=== PATIENT | female | born 1975 | race American Indian/Alaskan Native ===

== ENCOUNTER 2019-06-05 08:28 | Emergency (ER) | payer OTHER ==
[2019-06-05 08:43] VITALS: BP 145/70
--- NOTE | 2019-06-05 10:04 | XRay Report ---
CHEST 2 VIEWS INDICATION: cough. Left lower rib pain. COMPARISON: None FINDINGS: Support devices: None. Heart: Within normal limits. Lungs/pleura: There is mild bronchial wall thickening in the perihilar regions extending to the lower lobes suggesting reactive airway disease, bronchiolitis or bronchitis. No infiltrate, pleural fluid or pneumothorax is identified. Additional findings: No osseous abnormality or rib abnormality is detected. IMPRESSION: Mild bronchial wall thickening is identified suggesting viral infection, bronchitis or reactive airwa y disease. Signer Name: Alin Mcginnis Jr, MD Signed: 06/05/2019 10:00 AM Workstation Name: [id number]
[2019-06-05] MEDS ORDERED: predniSONE 20 MG TAB PO ONE (10:52)
[2019-06-05] MEDS ORDERED: ALBUTEROL 2.5 MG/3 ML NEBU IH ONE (10:52)
--- NOTE | 2019-06-05 10:52 | Emergency Department Report ---
Minor Respiratory - HPI Chief Complaint: Weakness Stated Complaint: CHEST PAIN/COUGH/FEVER/PAIN Time Seen by Provider: 06/05/19 10:51 Pain Location: Chest Severity: mild Minor Respiratory: Yes Able to Tolerate Fluids, Yes Cough, No Rhinorrhea, No Sore Throat, No Ear Pain, No Sick Contacts, No Hemoptysis, No Chest Pain, No Shortness of Breath, No Fever Other History: 44 YO AA FEMALE COMES TO ER WITH 2 M HX OF COUGH. ENDORSES CHILLS BUT NO FEVER. HR IN TRIAGE ELEVATED BUT ON MY EXAM 85 BPM. SAT 100 ON ROOM AIR. YELLOW SPUTUM. PT DOES SMOKE. NO KNOWN MED HX. PCP NONE. NO DRUGS OR ETOH ED Review of Systems ROS: Stated complaint: CHEST PAIN/COUGH/FEVER/PAIN Other details as noted in HPI Comment: All other systems reviewed and negative ED Past Medical Hx - Past Medical History Previous Medical History?: No - Surgical History Past Surgical History?: Yes Additional Surgical History: hysterectomy - Family History Family history: no significant - Social History Smoking Status: Current Every Day Smoker Substance Use Type: None - Medications Home Medications: Home Medications Medication Instructions Recorded Confirmed Last Taken Type Azithromycin [Zithromax Z-TAWANDA] 250 mg PO DAILY #6 tablet 06/05/19 Unknown Rx Cetirizine HCl [ZyrTEC] 10 mg PO DAILY #30 capsule 06/05/19 Unknown Rx Fluticasone [Flonase] 1 spray NS QDAY #1 bottle 06/05/19 Unknown Rx predniSONE [Deltasone] 20 mg PO DAILY #5 tablet 06/05/19 Unknown Rx Minor Respiratory Exam - Exam General: Vital signs noted. No distress. Alert and acting appropriately. HEENT: Yes Moist Mucous Membranes, No Pharyngeal Erythema, No Pharyngeal Exudates, No Rhinorrhea, No Conjuctival Injection, No Frontal Tenderness, No Maxillary Tenderness Ear: Neither TM Bulge, Neither TM Erythema, Neither EAC Pain, Neither EAC Discharge Neck: Yes Supple, No Adenopathy Lungs: Yes Good Air Exchange, Yes Wheezes, No Ronchi, No Stridor, No Cough, No Labored Respirations, No Retractions, No Use of Accessory Muscles, No Other Abnormal Lung Sounds Heart: Yes Regular, No Murmur Abdomen: Yes Normal Bowel Sounds, No Tenderness, No Peritoneal Signs Skin: No Rash, No Edema Neurologic: Alert and oriented, no deficits. Musculoskeletal: Unremarkable. ED Course Vital Signs 06/05/19 08:40 Temperature 97.7 F Pulse Rate 125 H Respiratory 18 Rate Blood Pressure 145/70 O2 Sat by Pulse 96 Oximetry ED Medical Decision Making - Radiology Data Radiology results: report reviewed, image reviewed - Medical Decision Making XRAY NOTED WHEEZING ON EXAM CURRENT SMOKER PT EDUCATED ON COPD DUONEB AND PREDNISONE IN ER NO CP SUGGESTIVE OF ACS NO HYPOXIA OR SUSPICION FOR PE WILL DC HOME WITH PCP REFERRAL FOR COPD EVAL/ WILL NEED PFT Vital Signs 06/05/19 08:40 Temperature 97.7 F Pulse Rate 125 H Respiratory 18 Rate Blood Pressure 145/70 O2 Sat by Pulse 96 Oximetry - Differential Diagnosis URI/UNDX COPD Critical care attestation.: If time is entered above; I have spent that time in minutes in the direct care of this critically ill patient, excluding procedure time. ED Disposition Clinical Impression: Bronchitis Disposition: DC-01 TO HOME OR SELFCARE Is pt being admited?: No Does the pt Need Aspirin: No Condition: Stable Instructions: Chronic Bronchitis (ED), Acute Bronchitis (ED) Additional Instructions: MEDS ORDERED TODAY STOP SMOKING FOLLOW UP WITH PCP FOR LUNG TESTS I SUSPECT THIS IS COPD FROM SMOKING REFERRAL BELOW STAY WELL HYDRATED WITH WATER Referrals: OMER MCDANIEL MD [Staff Physician] - 3-5 Days Time of Disposition: 11:06
== END 2019-06-05 11:47 | disposition home or self-care (01) ==
LOC: ED 08:28
DX: J40 Bronchitis, not specified as acute or chronic (principal); F17.200 Nicotine dependence, unspecified, uncomplicated; Z90.710 Acquired absence of both cervix and uterus; Z79.899 Other long term (current) drug therapy
CPT/HCPCS: 71046; 94640; 99283; J7512; 94644